=== PATIENT | female | born 1990 | race Caucasian/White ===

== ENCOUNTER 2024-06-28 07:54 | Outpatient (AMB) | payer OTHER, SELFPAY ==
--- OUTSIDE RECORDS SUMMARY | 2024-06-28 07:56 | XMS_ITS | Clinical Summary ---
Author Organization [address] [place] [address] [place] [id number] Phone Care Team Providers Care Printing Sales Representative Name Role Phone Erlin Quezada MD Primary Care Provider [phone] Allergies Active Allergy Reactions Criticality Noted Date Comments Sulfamethoxazole-Trimethoprim 2023 Medications dextroamphetami ne sulfate (DEXEDRINE SPANSULE) 10 mg 24 hr capsule Take 2 capsules (20 mg total) by mouth 1 (one) time each day. Active lamoTRIgine (LaMICtal) 100 mg tablet Take 1 tablet (100 mg total) by mouth at bedtime. 03/28/2024 Active zolpidem (AMBIEN) 10 mg tablet Take 1 tablet (10 mg total) by mouth at bedtime. 03/09/2024 Active Active Problems Problem Noted Date Diagnosed Date Acute gastroenteritis 04/15/2024 Encounters Date Type Department Care Team Description 04/17/2024 Telephone [facility] [address] [id number] Rosalinda Edwards MA 04/15/2024 12:19 PM EST - 04/16/2024 1:15 PM EST Emergency [facility] Emergency [address] [place] [address] Uriel Lorenzo MD Cheng, Ting Ho Danny, DO Flores, Carlos M, MD Santoyo-Pacheco, Omar D, MD Nausea and vomiting, unspecified vomiting type (Primary Dx); Abdominal pain, unspecified abdominal location Discharge Disposition: Home or Self Care 04/15/2024 9:30 AM EST Office Visit [facility]In [facility] [address] [id number] Brenda Sood NP Nausea and vomiting, unspecified vomiting type (Primary Dx); Viral URI from Last 3 Months Surgical History Surgery Date Site/Laterality Comments OTHER SURGICAL HISTORY PROCEDURE: DENIES PREVIOUS SURGERY Medical History Medical History Date Comments Seasonal allergies DX:Seasonal a llergies Pruritus DX:Pruritus Family History Medical History Relation Name Comments Breast cancer Aunt Mothers side Diabetes Father Autoimmune disease Mother Prostate cancer Uncle Fathers side Relation Name Status Comments Aunt Alive Brother Alive Father Alive Maternal Grandfather brain t umor Maternal Grandmother Alive heart d isease Mother Alive Paternal Grandfather Alive Paternal Grandmother Alive Sister Alive Uncle Alive Social History Tobacco Use Types Packs/Day Years Used Date Smoking Tobacco: Never Smokeless Tobacco: Never Alcohol Use Standard Drinks/Week Comments Yes 0 (1 standard drink = 0.6 oz pur e alcohol) Comments Unknown Sex and Gender Information Value Date Recorded Sex Assigned at Not on file Legal Sex Female 9:10 PM EST Gender Identity Not on file Sexual Orientation Not on file Obstetrics History Last Filed Vital Signs Vital Sign Reading Time Taken Comments Blood Pressure 100/65 04/16/2024 10:30 AM EST Pulse 103 04/16/2024 10:28 AM EST Temperature 36.6 ??C (97.9 ??F) 04/16/2024 10:[address] Respiratory Rate 16 04/16/2024 10:28 AM EST Oxygen Saturation 96% 04/16/2024 10:28 AM EST Inhaled Oxygen Concentration - - Weight 97.5 kg (215 lb) 04/15/2024 5:33 PM EST Height 154.9 cm (5' 1 ) 04/15/2024 5:33 PM EST Body Mass Index 40.62 04/15/2024 5:33 PM EST Plan of Treatment Health Maintenance Due Date Last Done Comments Hepatitis B Vaccines (1 of 3 - 19+ 3-dose series) 08/01/2011 Depression Screening 06/16/2019 HIV Screening 06/16/2019 Hepatitis C Screening 06/16/2019 Social Influencers of Health Screening 06/16/2019 COVID-19 Vaccine (3 - Pfizer risk series) 08/09/2020 07/12/2020, 06/21/2020 Influenza Vaccine (#1) 2024 02/25/2023 Cervical Cancer Screening: P ap Smear 12/18/2024 12/18/2021 DTaP,Tdap,and Td Vaccines (2 - Td or Tdap) 07/23/2030 07/23/2020 HIB Vaccines Aged Out No longer eligi ble based on patient's age to complete this topic HPV Vaccines Aged Out No longer eligi ble based on patient's age to complete this topic Hepatitis A Vaccines Aged Out No long er eligible based on patient's age to complete this topic IPV Vaccines Aged Out No longer eligi ble based on patient's age to complete this topic MMR Vaccines Aged Out No longer eligi ble based on patient's age to complete this topic Meningococcal ACWY Vaccine Aged Out N o longer eligible based on patient's age to complete this topic Meningococcal B Vacine Aged Out No lo nger eligible based on patient's age to complete this topic Pneumococcal Vaccine: Pediatrics (0 to 5 Years) and At-Risk Patients (6 to 64 Years) Aged Out No longer eligible b ased on patient's age to complete this topic RSV Immunization Patients Under 20 months Aged Out No longer eligible b ased on patient's age to complete this topic Varicella Vaccines Aged Out No longer eligible based on patient's age to complete this topic Procedures Procedure Name Priority Date/Time Associated Diagnosis Comments ECG 12-LEAD Routine 04/16/2024 9:31 AM EST GASTROINTESTINAL PATHOGENS BY PCR Routine 04/16/2024 6:39 AM EST CBC WITH AUTO DIFFERENTIAL Routine 04/16/2024 5:07 AM EST CBC AND DIFFERENTIAL Routine 04/16/2024 5:07 AM EST MAGNESIUM Routine 04/16/2024 5:06 AM EST BASIC METABOLIC PANEL Routine 04/16/2024 5:06 AM EST HEMOGLOBIN AND HEMATOCRIT STAT 04/15/2024 9:57 PM EST URINALYSIS WITH REFLEX MICROSCOPIC STAT 04/15/2024 4:37 PM EST URINALYSIS WITH REFLEX MICROSCOPIC STAT 04/15/2024 4:37 PM EST XR CHEST 2 VIEWS STAT 04/15/2024 4:[address] ABDOMEN PELVIS W CONTRAST STAT 04/15/2024 3:46 PM EST MANUAL DIFFERENTIAL - SYSMEX WAM STAT 04/15/2024 1:04 PM EST HCG, SERUM, QUALITATIVE STAT 04/15/20 24 1:04 PM EST CBC WITH AUTO DIFFERENTIAL STAT 04/15/2024 1:04 PM EST LIPASE STAT 04/15/2024 1:04 PM EST MAGNESIUM STAT 04/15/2024 1:04 PM EST CBC AND DIFFERENTIAL STAT 04/15/2024 1:04 PM EST COMPREHENSIVE METABOLIC PANEL STAT 04/15/2024 1:04 PM EST POC INFLUENZA A&B MUNA Routine 04/15/2024 10:59 AM EST Nausea and vomiting, unspecified vomiting type POC RAPID [id number], MOLECULAR Routine 04/15/2024 10:58 AM EST Nausea and vomiting, unspecified vomiting type MANUAL DIFFERENTIAL - SYSMEX WAM Routine 04/15/2024 10:12 AM EST Nausea and vomiting, unspecified vomiting type CBC WITH AUTO DIFFERENTIAL Routine 04/15/2024 10:12 AM EST Nausea and vomiting, unspecified vomiting type CBC AND DIFFERENTIAL Routine 04/15/2024 10:12 AM EST Nausea and vomiting, unspecified vomiting type COMPREHENSIVE METABOLIC PANEL Routine 04/15/2024 10:12 AM EST Nausea and vomiting, unspecified vomiting type ECG ANNOTATED 04/15/2024 PAP SMEAR Routine 12/18/2021 from Last 3 Months or Most Recently Relevant to Health Maintenance Results * ECG 12 lead (04/16/2024 9:31 AM EST) Pathologist [facility] Ventricular Rate ECG 102 BPM GEMUSE Atrial Rate 102 BPM GEMUSE P-R Interval 182 ms GEMUSE QRS Duration 68 ms GEMUSE Q-T Interval 334 ms GEMUSE QTc 435 ms GEMUSE P Wave [place] 23 degrees GEMUSE R [place] 26 degrees GEMUSE T [place] 5 degrees GEMUSE ECG Interpretation Sinus tachycardia Otherwise normal ECG No previous ECGs available Confirmed by James MIRZA YUFENG ([id number]) on 04/16/2024 1:56:30 PM GEMUSE 04/16/2024 9:31 AM EST 04/16/2024 1:56 PM EST Jack Gilbert NP ECG ORDERABLES Final Result GEMUSE * (ABNORMAL) Gastrointestinal pathogens molecular study (04/16/2024 6:39 AM EST) [facility] Campylobacter Detection by PCR Not Detected Not Detected LAB MICROBIOLOGY METHOD 4 10:26 AM [facility] Plesiomonas shigelloides Detection by PCR Not Detected Not Detected LAB MICROBIOLOGY METHOD 4 10:26 AM [facility] Salmonella Detection by PCR Not Detected Not Detected LAB MICROBIOLOGY METHOD 4 10:26 AM [facility] Vibrio Detection by PCR Not Detected Not Detected LAB MICROBIOLOGY METHOD 4 10:26 AM [facility] Vibrio cholerae Detection by PCR Not Detected Not Detected LAB MICROBIOLOGY METHOD 4 10:26 AM [facility] Yersinia enterocolitica Detection by PCR Not Detected Not Detected LAB MICROBIOLOGY METHOD 4 10:26 AM [facility] Enteroaggregative E coli EAEC Detection by PCR Not Detected Not Detected LAB MICROBIOLOGY METHOD 4 10:26 AM [facility] Enteropathogenic E coli EPEC Detection Not Detected Not Detected LAB MICROBIOLOGY METHOD 4 10:26 [facility] Enterotoxigenic E coli ETEC LTST Detection Not Detected Not Detected LAB MICROBIOLOGY METHOD 4 10:26 AM [facility] Shiga-like toxin producing E coli STEC STX1 STX2 Det Not Detected Not Detected LAB MICROBIOLOGY METHOD 4 10:26 AM [facility] Shigella Enteroinvasive E coli EIEC Detection Not Detected Not Detected LAB MICROBIOLOGY METHOD 4 10:26 AM [facility] Cryptosporidium Detection by PCR Not Detected Not Detected LAB MICROBIOLOGY METHOD 4 10:26 AM [facility] Cyclospora cayetanensis Detection by PCR Not Detected Not Detected LAB MICROBIOLOGY METHOD 4 10:26 AM [facility] Entamoeba histolytica Detection by PCR Not Detected Not Detected LAB MICROBIOLOGY METHOD 4 10:26 [facility] Giardia lamblia Detection by PCR Not Detected Not Detected LAB MICROBIOLOGY METHOD 4 10:26 AM [facility] Adenovirus F 40 41 Detection by PCR Not Detected Not Detected LAB MICROBIOLOGY METHOD 4 10:26 [facility] Astrovirus Detection by PCR Not Detected Not Detected LAB MICROBIOLOGY METHOD 4 10:26 [facility] Norovirus GI GII Detection by PCR Detected(A ) Not Detected LAB MICROBIOLOGY METHOD 4 10:26 [facility] Comment:Alternate method rec ommended if results do not correlate with the clinical presentation. Sapovirus Detection by PCR Not Detected Not Detected LAB MICROBIOLOGY METHOD 10:26 AM [facility] Rotavirus A Detection by PCR Not Detected Not Detected LAB MICROBIOLOGY METHOD 10:26 AM [facility] Stool Rectum structure / Unknown Non-blood Collection / Unknown 04/16/2024 6:39 AM EST 04/16/2024 6:45 AM EST [facility] - 04/16/2024 10:26 AM EST PCR testing is much more sensitive than traditional techniques and allows for the detection of low numbers of stool pathogens. The clinical correlation of PCR results with the need for treatment and clinical outcomes has not been established. Therefore the results of PCR testing for stool pathogens must be taken into clinical context when making treatment decisions. This is a diagnostic test only, repeat testing for cure is not advised. You may consider infectious disease consult for additional guidance. ??Testing Performed by [facility] Jack Gilbert NP LAB MICROBIOLOGY - GENERAL ORDER [place] Edited Result - Final [facility] [address] [place] [address], [place] [phone] * (ABNORMAL) CBC auto differential (04/16/2024 5:07 AM EST) Only the most recent of3 resultswithin the time period is included. WBC 3.6(L) 4.8 - 10.8 K/mcL LAB HEMETOLOGY METHOD 04/16/2024 5:44 AM [facility] RBC 3.50(L) 3.80 - 4.80 M/mcL LAB HEMETOLOGY METHOD 04/16/2024 5:44 AM [facility] Hemoglobin 10.3(L) 11.5 - 16.0 g/dL LAB HEMETOLOGY METHOD 04/16/2024 5:44 AM [facility] Hematocrit 31.9(L) 35.0 - 47.0 % LAB HEMETOLOGY METHOD 04/16/2024 5:44 AM [facility] MCV 90.4 79.0 - 98.0 FL LAB HEMETOLOGY METHOD 04/16/2024 5:44 AM [facility] MCH 29.2 27.0 - 32.0 pcg LAB HEMETOLOGY METHOD 04/16/2024 5:44 AM [facility] MCHC 32.3 32.0 - 37.0 g/dL LAB HEMETOLOGY METHOD 04/16/2024 5:44 AM [facility] RDW 13.5 11.0 - 15.0 % LAB HEMETOLOGY METHOD 04/16/2024 5:44 AM [facility] Platelets 208 130 - 400 K/mcL LAB HEMETOLOGY METHOD 04/16/2024 5:44 AM [facility] MPV 10.9 7.0 - 11.0 FL LAB HEMETOLOGY METHOD 04/16/2024 5:44 AM [facility] NRBC 0.0 <1.0 % LAB HEMETOLOGY METHOD 04/16/2024 5:44 AM [facility] NRBC Absolute 0.00 <0.10 K/mcL LAB HEMETOLOGY METHOD 04/16/2024 5:44 AM [facility] Neutrophils Relative 64.1 % LAB HEMETOLOGY METHOD 04/16/2024 5:44 AM [facility] Lymphocytes Relative 25.9 % LAB HEMETOLOGY METHOD 04/16/2024 5:44 AM [facility] Monocytes Relative 9.4 % LAB HEMETOLOGY METHOD 04/16/2024 5:44 AM [facility] Eosinophils Relative 0.3 % LAB HEMETOLOGY METHOD 04/16/2024 5:44 AM [facility] Basophils Relative 0.0 % LAB HEMETOLOGY METHOD 04/16/2024 5:44 AM [facility] Immature Granulocytes Relative 0.3 % LAB HEMETOLOGY METHOD 04/16/2024 5:44 AM EST [facility] Neutrophils Absolute 2.33 1.50 - 7.00 K/mcL LAB HEMETOLOGY METHOD 04/16/2024 5:44 AM EST [facility] Lymphocytes Absolute 0.94(L) 1.00 - 5.00 K/mcL LAB HEMETOLOGY METHOD 04/16/2024 5:44 AM EST [facility] Monocytes Absolute 0.34 0.20 - 1.00 K/mcL LAB HEMETOLOGY METHOD 04/16/2024 5:44 AM EST [facility] Eosinophils Absolute 0.01 0.00 - 0.50 K/mcL LAB HEMETOLOGY METHOD 04/16/2024 5:44 AM EST [facility] Basophils Absolute 0.00 0.00 - 0.20 K/mcL LAB HEMETOLOGY METHOD 04/16/2024 5:44 AM EST [facility] Immature Granulocytes Absolute 0.01 0.00 - 0.03 K/mcL LAB HEMETOLOGY METHOD 04/16/2024 5:44 AM EST [facility] Blood Venous blood specimen / Unknown Venipuncture / Unknown 04/16/2024 5:07 AM EST 04/16/2024 5:18 AM EST us Oswaldo Hanson MD LAB BLOOD ORDERABLES Final Re sult [facility] [address] [place] [address], * Magnesium (04/16/2024 5:06 AM EST) Only the most recent of2 resultswithin the time period is included. Magnesium 2.3 1.9 - 2.6 mg/dL LAB CHEMISTRY METHOD 04/16/2024 5:46 AM EST [facility] Blood Venous blood specimen / Unknown Venipuncture / Unknown 04/16/2024 5:06 AM EST 04/16/2024 5:18 AM EST us Oswaldo Hanson MD LAB BLOOD ORDERABLES Final Re sult [facility] [address] [place] [address], * (ABNORMAL) Basic metabolic panel (04/16/2024 5:06 AM EST) Sodium 139 133 - 145 mmol/L LAB CHEMISTRY METHOD 04/16/2024 5:46 AM [facility] Potassium 3.6 3.5 - 5.5 mmol/L LAB CHEMISTRY METHOD 04/16/2024 5:46 AM [facility] Chloride 110 96 - 110 mmol/L LAB CHEMISTRY METHOD 04/16/2024 5:46 AM [facility] CO2 24 21 - 32 mmol/L LAB CHEMISTRY METHOD 04/16/2024 5:46 AM [facility] Anion Gap 5 3 - 11 LAB CHEMISTRY METHOD 04/16/2024 5:46 AM [facility] Glucose 88 70 - 100 mg/dL LAB CHEMISTRY METHOD 04/16/2024 5:46 AM [facility] BUN 7 5 - 25 mg/dL LAB CHEMISTRY METHOD 04/16/2024 5:46 AM [facility] Creatinine 0.54 0.50 - 1.10 mg/dL LAB CHEMISTRY METHOD 04/16/2024 5:46 AM [facility] eGFR 126 >=60 mL/min/1. 73m2 LAB CHEMISTRY METHOD 04/16/2024 5:46 AM [facility] Comment:Calculation based on the??Chronic Kidney Disease Epidemiology Collaboration (CKD-EPI) equation refit??without adjustment for race. BUN/Creatinine Ratio 13.0 LAB CHEMISTRY METHOD 04/16/2024 5:46 AM [facility] Calcium 7.7(L) 8.5 - 10.5 mg/dL LAB CHEMISTRY METHOD 04/16/2024 5:46 AM [facility] Blood Venous blood specimen / Unknown Venipuncture / Unknown 04/16/2024 5:06 AM EST 04/16/2024 5:18 AM EST Oswaldo Hanson MD LAB BLOOD ORDERABLES Final Re sult Performing Organization Address [facility]/ZIP Co de Phone Number [facility] [address] [place] [address], [place] [phone] * Hemoglobin and hematocrit (04/15/2024 9:57 PM EST) Hemoglobin 12.1 11.5 - 16.0 g/dL LAB HEMETOLOGY METHOD 04/15/2024 10:06 PM [facility] Hematocrit 36.5 35.0 - 47.0 % LAB HEMETOLOGY METHOD 04/15/2024 10:06 PM [facility] Blood Venous blood specimen / Unknown Venipuncture / Unknown 04/15/2024 9:57 PM EST 04/15/2024 10:02 PM EST Jack Gilbert NP LAB BLOOD ORDERABLES Final Resul t Performing Organization Address [facility]/ZIP Co de Phone Number [facility] [address] [place] [address], [place] [phone] * (ABNORMAL) Urinalysis with reflex microscopic (04/15/2024 4:37 PM EST) Specific [place] Urine >1.045(H) 1.003 - 1.030 LAB URINALYSIS - AUTOMATED METHOD 04/15/2024 5:05 PM [facility] pH, Urine 6.5 5.0 - 8.0 pH LAB URINALYSIS - AUTOMATED METHOD 04/15/2024 5:05 PM [facility] Leukocytes, Urine Negative Negative LAB URINALYSIS - AUTOMATED METHOD 04/15/2024 5:05 PM [facility] Nitrite, Urine Negative Negative LAB URINALYSIS - AUTOMATED METHOD 04/15/2024 5:05 PM [facility] Protein, Urine Negative <=Trace mg/dL LAB URINALYSIS - AUTOMATED METHOD 04/15/2024 5:05 PM [facility] Glucose, Urine Negative Negative mg/dL LAB URINALYSIS - AUTOMATED METHOD 04/15/2024 5:05 PM [facility] Ketones, Urine 15(A) Negative mg/dL LAB URINALYSIS - AUTOMATED METHOD 04/15/2024 5:05 PM [facility] Urobilinogen , Urine 0.2 0.2 - 1.0 mg/dL LAB URINALYSIS - AUTOMATED METHOD 04/15/2024 5:05 PM [facility] Bilirubin, Urine Negative Negative LAB URINALYSIS - AUTOMATED METHOD 04/15/2024 5:05 PM [facility] Blood, Urine Negative Negative LAB URINALYSIS - AUTOMATED METHOD 04/15/2024 5:05 PM [facility] Urine Urine specimen obtained by clean catch procedure / Unknown Non-blood Collection / Unknown 04/15/2024 4:37 PM EST 04/15/2024 4:50 PM EST us Baldemar FLEMING LAB URINE ORDERABLES April kong Result [facility] [address] [place] [address], * XR Chest 2 Views (04/15/2024 4:02 PM EST) Anatomical Region Laterality Modality Body Radiographic Ebonie ging 04/15/2024 4:10 PM EST Impressions 04/15/2024 4:10 PM EST The lungs are clear bilaterally. ??The mediastinum appears within normal limits. -------- FINAL REPORT -------- Dictated By: Baldemar Cerrato Dictated Date: 04/15/2024 16:10 ET Assigned Physician: Baldemar Cerrato Reviewed and Electronically Signed By: Baldemar Cerrato Signed Date: 04/15/2024 16:10 ET Workstation ID: [id number] Transcribed By: Self Edit Transcribed Date: 04/15/2024 16:10 ET Narrative 04/15/2024 4:10 PM EST Frontal and lateral view of the chest COMPARISON: CT chest November 2019 INDICATION: Fatigue. ??Body aches. ??Weakness. Procedure Note Baldemar Cerrato MD - 04/15/2024 Frontal and lateral view of the chest COMPARISON: CT chest November 2019 INDICATION: Fatigue. Body aches. Weakness. IMPRESSION: The lungs are clear bilaterally. The mediastinum appears within normallimits. -------- FINAL REPORT -------- Dictated By: Baldemar Cerrato Dictated Date: 04/15/2024 16:10 ET Assigned Physician: Baldemar Cerrato Reviewed and Electronically Signed By: Baldemar Cerrato Signed Date: 04/15/2024 16:10 ET Workstation ID: [id number] Transcribed By: Self Edit Transcribed Date: 04/15/2024 16:10 ET Sam FLEMING IMG XR PROCEDURES Final Resul t * CT Abdomen Pelvis w Contrast (04/15/2024 3:46 PM EST) Anatomical Region Laterality Modality Body Computed Tomogra phy 04/15/2024 3:58 PM EST Impressions 04/15/2024 4:02 PM EST Fluid is noted within small bowel loops and within much of the colon that may be seen with enteritis/diarrheal illness. -------- FINAL REPORT -------- Dictated By: Baldemar Cerrato Dictated Date: 04/15/2024 15:58 ET Assigned Physician: Baldemar Cerrato Reviewed and Electronically Signed By: Baldemar Cerrato Signed Date: 04/15/2024 16:02 ET Workstation ID: [id number] Transcribed By: Self Edit Transcribed Date: 04/15/2024 15:58 ET Narrative 04/15/2024 4:[address] abdomen and pelvis with IV contrast TECHNIQUE: Axial and reformatted images were performed of the abdomen and pelvis following administration of IV contrast.90cc of ISOVUE was administered IV for contrast enhanced images DOSE: CTDIvol: 31.5mGy. ??Total exam DLP: 1748.7mGy-cm COMPARISON: None INDICATION: Nausea and vomiting and diarrhea. FINDINGS: Liver: The liver appears normal Biliary: Gallbladder appears normal. No biliary dilatation. Pancreas: Pancreas appears within normal limits. ??No atrophy or ductal dilatation. Spleen: Spleen appears normal. ?? Adrenals: The adrenal glands appear symmetric and normal bilaterally. Kidneys: The kidneys appear normal. ??No evidence of hydronephrosis. Retroperitoneum: No abnormal lymphadenopathy. ?? Vessels: Aorta appears normal Bowel: Fluid is noted throughout much the colon. ??Mildly distended fluid-filled bowel loops are noted. ??No regions of irregular bowel wall thickening or mucosal enhancement. Mesentery: Mesentery appears normal. ??No ascites. Pelvis: Pelvis appears within normal limits. ??No abnormal lymphadenopathy. Abdominal wall/bones: No significant hernia. ??Bones appear within normal limits. ?? Lung Bases: Minimal basilar atelectasis. Procedure Note Baldemar Cerrato MD - 04/15/2024 CT abdomen and pelvis with IV contrast TECHNIQUE: Axial and reformatted images were performed of the abdomen andpelvis following administration of IV contrast.90cc of ISOVUE wasadministered IV for contrast enhanced images DOSE: CTDIvol: 31.5mGy. Total exam DLP: 1748.7mGy-cm COMPARISON: None INDICATION: Nausea and vomiting and diarrhea. FINDINGS: Liver: The liver appears normal Biliary: Gallbladder appears normal. No biliary dilatation. Pancreas: Pancreas appears within normal limits. No atrophy or ductaldilatation. Spleen: Spleen appears normal. Adrenals: The adrenal glands appear symmetric and normal bilaterally. Kidneys: The kidneys appear normal. No evidence of hydronephrosis. Retroperitoneum: No abnormal lymphadenopathy. Vessels: Aorta appears normal Bowel: Fluid is noted throughout much the colon. Mildly distendedfluid-filled bowel loops are noted. No regions of irregular bowel wallthickening or mucosal enhancement. Mesentery: Mesentery appears normal. No ascites. Pelvis: Pelvis appears within normal limits. No abnormallymphadenopathy. Abdominal wall/bones: No significant hernia. Bones appear within normallimits. Lung Bases: Minimal basilar atelectasis. IMPRESSION: Fluid is noted within small bowel loops and within much of the colon thatmay be seen with enteritis/diarrheal illness. -------- FINAL REPORT -------- Dictated By: Baldemar Cerrato Dictated Date: 04/15/2024 15:58 ET Assigned Physician: Baldemar Cerrato Reviewed and Electronically Signed By: Baldemar Cerrato Signed Date: 04/15/2024 16:02 ET Workstation ID: [id number] Transcribed By: Self Edit Transcribed Date: 04/15/2024 15:58 ET Sam FLEMING IM CT PROCEDURES Final Resul t * (ABNORMAL) Manual differential (04/15/2024 1:04 PM EST) Only the most recent of2 resultswithin the time period is included. Neutrophils % 87.0 % LAB HEMETOLOGY METHOD 04/15/2024 2:25 PM EST [facility] Bands % 7.0 % LAB HEMETOLOGY METHOD 04/15/2024 2:25 PM EST [facility] Lymphocytes % 3.0 % LAB HEMETOLOGY METHOD 04/15/2024 2:25 PM [facility] Monocytes % 4.0 % LAB HEMETOLOGY METHOD 04/15/2024 2:25 PM [facility] Eosinophils % 0.0 % LAB HEMETOLOGY METHOD 04/15/2024 2:25 PM EST [facility] Basophils % 0.0 % LAB HEMETOLOGY METHOD 04/15/2024 2:25 PM [facility] Neutrophils Absolute Manual 3.83 1.50 - 7.00 K/mcL LAB HEMETOLOGY METHOD 04/15/2024 2:25 PM [facility] Bands Absolute Manual 0.31(H) 0.00 - 0.00 K/mcL LAB HEMETOLOGY METHOD 04/15/2024 2:25 PM EST [facility] Lymphocytes Absolute 0.13(L) 1.00 - 5.00 K/mcL LAB HEMETOLOGY METHOD 04/15/2024 2:25 PM EST [facility] Monocytes Absolute Manual 0.18(L) 0.20 - 1.00 K/mcL LAB HEMETOLOGY METHOD 04/15/2024 2:25 PM [facility] Eosinophils Absolute Manual 0.00 0.00 - 0.50 K/mcL LAB HEMETOLOGY METHOD 04/15/2024 2:25 PM [facility] Basophils Absolute Manual 0.00 0.00 - 0.20 K/mcL LAB HEMETOLOGY METHOD 04/15/2024 2:25 PM EST [facility] Rbc Morphology See comment( A) Consistent with indices, Normal for [place] LAB HEMETOLOGY METHOD 04/15/2024 2:25 PM EST [facility] Comment:RBC: Morphology agre es with CBC Platelet Morphology - WAM See Note(A) Normal LAB HEMETOLOGY METHOD 04/15/2024 2:25 PM [facility] Comment:PLT: Normal Blood Venous blood specimen / Unknown Venipuncture / Unknown 04/15/2024 1:04 PM EST 04/15/2024 1:48 PM EST us Baldemar FLEMING LAB BLOOD ORDERABLES April dilan Result [facility] [address] [place] [address], [place] [phone] * hCG, serum, qualitative (04/15/2024 1:04 PM EST) [facility] hCG Qual Negative Negative 04/15/2024 2:24 PM EST [facility] Blood Venous blood specimen / Unknown Venipuncture / Unknown 04/15/2024 1:04 PM EST 04/15/2024 1:48 PM EST Uriel Lorenzo MD LAB BLOOD ORDERABLES Final Resu lt Performing Organization Address [facility]/ZIP Co de Phone Number [facility] [address] [place] [address], [place] [phone] * (ABNORMAL) Lipase (04/15/2024 1:04 PM EST) [facility] Lipase 11(L) 13 - 75 unit/L LAB CHEMISTRY METHOD 04/15/2024 2:22 PM EST [facility] Blood Venous blood specimen / Unknown Venipuncture / Unknown 04/15/2024 1:04 PM EST 04/15/2024 1:48 PM EST Baldemar FLEMING LAB BLOOD ORDERABLES April l Result Performing Organization Address [facility]/ZIP Co de Phone Number [facility] [address] [place] [address], [place] [phone] * (ABNORMAL) Comprehensive Metabolic Panel (CMP) (04/15/2024 1:04 PM EST) Only the most recent of2 resultswithin the time period is included. [facility] Sodium 140 133 - 145 mmol/L LAB CHEMISTRY METHOD 04/15/2024 2:22 PM EST [facility] Potassium 3.3(L) 3.5 - 5.5 mmol/L LAB CHEMISTRY METHOD 04/15/2024 2:22 PM [facility] Chloride 111(H) 96 - 110 mmol/L LAB CHEMISTRY METHOD 04/15/2024 2:22 PM [facility] CO2 21 21 - 32 mmol/L LAB CHEMISTRY METHOD 04/15/2024 2:22 PM [facility] Anion Gap 8 3 - 11 LAB CHEMISTRY METHOD 04/15/2024 2:22 PM [facility] Glucose 107(H) 70 - 100 mg/dL LAB CHEMISTRY METHOD 04/15/2024 2:22 PM [facility] BUN 15 5 - 25 mg/dL LAB CHEMISTRY METHOD 04/15/2024 2:22 PM [facility] Creatinine 0.69 0.50 - 1.10 mg/dL LAB CHEMISTRY METHOD 04/15/2024 2:22 PM [facility] eGFR 119 >=60 mL/min/1. 73m2 LAB CHEMISTRY METHOD 04/15/2024 2:22 PM [facility] Comment:Calculation based on the??Chronic Kidney Disease Epidemiology Collaboration (CKD-EPI) equation refit??without adjustment for race. BUN/Creatinine Ratio 21.7 LAB CHEMISTRY METHOD 04/15/2024 2:22 PM [facility] Calcium 7.5(L) 8.5 - 10.5 mg/dL LAB CHEMISTRY METHOD 04/15/2024 2:22 PM [facility] AST (SGOT) 16 10 - 42 unit/L LAB CHEMISTRY METHOD 04/15/2024 2:22 PM [facility] ALT (SGPT) 28 10 - 60 unit/L LAB CHEMISTRY METHOD 04/15/2024 2:22 PM [facility] Alkaline Phosphatase 57 42 - 121 unit/L LAB CHEMISTRY METHOD 04/15/2024 2:22 PM [facility] Total Protein 5.4(L) 6.0 - 8.0 g/dL LAB CHEMISTRY METHOD 04/15/2024 2:22 PM EST [facility] Albumin 3.0(L) 3.2 - 5.0 g/dL LAB CHEMISTRY METHOD 04/15/2024 2:22 PM EST [facility] Total Bilirubin 0.4 0.0 - 1.4 mg/dL LAB CHEMISTRY METHOD 04/15/2024 2:22 PM EST [facility] Blood Venous blood specimen / Unknown Venipuncture / Unknown 04/15/2024 1:04 PM EST 04/15/2024 1:48 PM EST Baldemar FLEMING LAB BLOOD ORDERABLES April l Result [facility] [address] [place] [address], * POC Influenza A&B MUNA (04/15/2024 10:59 AM EST) POC Alysha Flu A Antigen Negative Negative POC Alysha Flu B Antigen Negative Negative Swab Nasopharyngeal structure / Unknown 04/15/2024 10:59 AM EST Brenda Sood INFORMATION TECHNOLOGY DATA ANALYST POINT OF CARE TEST ENTER/EDIT ORDERABLES Final Result * Poc Rapid [id number], MOLECULAR (04/15/2024 10:58 AM EST) COVID-19/SARS- COV-2 Rapid POC Negative Negative Swab Nasopharyngeal structure / Unknown 04/15/2024 10:58 AM EST us Brenda Sood INFORMATION TECHNOLOGY DATA ANALYST POINT OF CARE TEST ENTER/EDIT ORDERABLES Final Result * ECG-Annotated (04/15/2024) us Provider Onbase MD ECG ORDERABLES Final Result * Pap smear (12/18/2021) 12/18/2021 Narrative HISTORICAL TESTING LAB RESULTING AGENCY - 12/25/2021 4:31 PM EDT [id number] THINPREP PAP, IMAGED: NEGATIVE FOR SQUAMOUS INTRAEPITHELIAL LESION AND MALIGNANCY . NIKOLAY GUTIERRES(ASCP) (CASE ELECTRONICALLY SIGNED 12 25 2021) ADEQUACY: SATISFACTORY ENDOCERVICAL/TRANSFORMATION ZONE COMPONENT ABSENT. SOURCE: THINPREP PAP HPV IF ASCUS: REFLEX 16 AND 18, CERVICAL, IMAGED CLINICAL INFORMATION: HPV IF DIAGNOSIS OF ASCUS. AMENORRHEA, Z12.4 Anali Oden [facility] CYTOLOGY ORDERABLES Final Result HISTORICAL TESTING LAB RESULTING AGENCY from Last 3 Months or Most Recently Relevant to Health Maintenance Additional Health Concerns Infection Onset Date Last Indicated Norovirus 04/16/2024 04/16/2024 Insurance [employer] DOME[employer]IC Advance Directives * Full Code - Default (Latest Code Status on File) Date Activated Date Inactivated Comments 04/15/2024 6:12 PM 04/16/2024 3:21 PM This is orde r is used when code status has not been discussed with the patient, or code status is otherwise unknown/unconfirmed To update the patient's code status, place a code status order. Do not modify or discontinue any currently active code status orders. Care Teams Printing Sales Representative Relationship Specialty Start Date End Date Erlin Quezada MD [address] [place] [address] [address] [place], [place] PCP - General Internal Medicine 10/13/16
--- OUTSIDE RECORDS SUMMARY | 2024-06-28 07:56 | XMS_ITS | Data Portability ---
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 Plan of Treatment Reminders Order Date Submit Date Provider Last Modified By Organization Details Last Modified Time Details Appointments None recorded. Lab rapid SARS CoV 2 Ag, QL IA, respiratory specimen 2022 023 [place] [address] [facility] [address], [address] [place], [address], 3 20:10:43 urinalysis, dipstick 2022 023 [email or web address] [facility] [address], [address] [place], [address], 3 21:27:27 test, urine 20[email or web address] [place] [address] [address], [address] [place], [address], 3 21:27:27 culture, urine 2022 023 GEORGE [facility], [address] [place] [address], [place], [address], 3 22:06:01 Referral None recorded. Procedures None recorded. Surgeries None recorded. Imaging None recorded. Medication Orders amoxicillin 875 mg tablet 2023 024 [id number], [address] [facility], [place], [address], 4 18:36:56 cefuroxime axetil 500 mg tablet 2022 023 [email or web address] 2 [facility], [phone] [place], [address], 4 17:55:34 benzonatate 100 mg capsule 2022 023 [email or web address] 2 [facility], [phone] [place], [address], 4 17:55:19 loratadine 10 mg tablet 2022 023 [email or web address] [facility], [phone] [place], [address], 3 20:10:43 ondansetron HCl 4 mg tablet 2022 023 [email or web address] 2 [facility]30, [phone] [place], [address], 4 17:57:03 Patient TargetsNo targets recorded. Patient Instructions Encounter Date Encounter Id Patient Instructions Last Modified By Organization Details Last Modified Time 08/03/2022 [id number] gastroenteritis: care instructions [email or web address] Not available 08/03/2022 21:27:27 Please don't hesitate to call. ER like we discussed if you developed worsening abdominal symptoms, fever, or increased chest discomfort. Heating pad to your back and chest will help. Based on you exam and presentation I am diagnosing you with a viral gastroenteritis. This should resolve on its own without any intervention in 1-5 days. This may be contagious to try and avoid family members while you are sick. Use a seperate bathroom if possible. These are my recommendations to help with your symptoms and help you recover: 1. Drink plenty of fluid and stay hydrated. 2. Wash hands and home surfaces regularly. 3. Do not share food or drinks 4. Try to eat foods like toast, chicken broth, bananas. 5. Stay away from Gatorade, but you can drink pedialyte, soda, or water. 6. Avoid Dairy I would be seen again if you develop: 1. Severe abdominal pain 2. Vomiting more than 48 hours 3. Fever > 101.0 4. Blood in Stool 5. Blood in Urine. Thank you for using [facility] [employer], please feel free to contact us if you have any questions or concerns. [email or web address] Not available 08/03/2022 20:11:51 10/23/2023 [id number] lymphadenitis: c are instructions [email or web address] Not available 10/23/2023 18:38:17 You can take ove r the counter tylenol or ibuprofen per package instructions for the pain. See printed instructions. Follow-up with your doctor if no improvement in 3 days. Seek Emergency Medical evaluation for any worsening symptoms. [email or web address] Not available 10/23/2023 18:37:32 Reason for Referral None Reported. Results Created Date Observation Date Name Description Value Unit Range Abnormal Flag Note LastModifiedBy Organization Detail LastModifiedTime 08/04/1908/08/2022 URINE CULTU RE, SALOI NE urine culture, routine FINAL REPORT abnormal Not Available [facility] ([facility]) [address] [facility], [place], [address], 08/08/2022 14:06:33 08/04/19 23 08/08/2022 URINE CULTU RE, ROUTI NE result 1 ENTERO COCCUS FAECAL IS abnormal For Enter ococc us speci es, amino glyco sides (exce pt for high- level resis tance scree jerrell) , cepha lospo rins, clind amyci n, and trime thopr im-mccloud lfame thoxa zole are not effec tive clini missy . (CLSI , M100- S26, 2016) 25,00 0-50, 000 colon y formi ng units per mL Not Available [facility] ([facility]) [address] [place], [address], 08/08/2022 14:06:33 08/04/19 23 08/08/2022 URINE CULTU RE, ROUTI NE antimicrobia l susceptibili ty COMMEN T S = Susce ptibl e; I = Inter media te; R = Resis tant P = Posit dax; N = Negat dax MICS are expre ssed in micro grams per mL Antib iotic RSLT# 1 RSLT# 2 RSLT# 3 RSLT# 4 Cipro floxa cody S Levof loxac in S Nitro furan toin S Penic illin S Tetra cycli ne R Vanco mycin S Not Available [facility] ([facility]) [address] [facility], [place], [address], 08/08/2022 14:06:33 08/04/1908/03/2022 urina lysis , dipst ick Unknown Analyte Normal = light yellow Not Available [address] [place], [address], 08/03/2022 20:02:01 08/04/19 23 08/03/2022 urina lysis , dipst ick Unknown Analyte Red Not Available [address] [place] [address] [address] [place], [address], 08/03/2022 20:02:01 08/04/19 23 08/03/2022 urina lysis , dipst ick Unknown Analyte Normal = clear Not Available [address] [place], [address], 08/03/2022 20:02:01 08/04/19 23 08/03/2022 urina lysis , dipst ick Unknown Analyte Slight ly Cloudy Not Available [address] [place], [address], 08/03/2022 20:02:01 08/04/19 23 08/03/2022 urina lysis , dipst ick Unknown Analyte Normal = negati ve Not Available [address] [place], [address], 08/03/2022 20:02:01 08/04/1908/03/2022 urina lysis , dipst ick Unknown Analyte Negati ve Not Available [facility] [address] [place], [address], 08/03/2022 20:02:01 08/04/19 23 08/03/2022 urina lysis , dipst ick Unknown Analyte Normal = Negati ve Not Available [facility] [address] [place], [address], 08/03/2022 20:02:01 08/04/1908/03/2022 urina lysis , dipst ick Unknown Analyte Large Not Available [facility] [address] [place], [address], 08/03/2022 20:02:01 08/04/19 23 08/03/2022 urina lysis , dipst ick Unknown Analyte Normal = Negati ve Not Available [facility] [address] [place], [address], 08/03/2022 20:02:01 08/04/1908/03/2022 urina lysis , dipst ick Unknown Analyte Trace Not Available [facility] [address] [place], [address], 08/03/2022 20:02:01 08/04/19 23 08/03/2022 urina lysis , dipst ick Unknown Analyte Normal = 1.010, 1.015, 1.020 Not Available [facility] [address] [place], [address], 08/03/2022 20:02:01 08/04/19 23 08/03/2022 urina lysis , dipst ick Unknown Analyte 1.020 Not Available [facility] [address] [place], [address], 08/03/2022 20:02:01 08/04/19 23 08/03/2022 urina lysis , dipst ick Unknown Analyte Normal = Negati ve Not Available [facility] [address] [address] [place], [address], 08/03/2022 20:02:01 08/04/19 23 08/03/2022 urina lysis , dipst ick Unknown Analyte Large Not Available [facility] [address] [place], [address], 08/03/2022 20:02:01 08/04/19 23 08/03/2022 urina lysis , dipst ick Unknown Analyte Normal = 6.5, 7.0, 7.5, 8.0 Not Available [facility] [place], [address], 08/03/2022 20:02:01 08/04/1908/03/2022 urina lysis , dipst ick Unknown Analyte 6.0 Not Available [facility] [address] [place], [address], 08/03/2022 20:02:01 08/04/19 23 08/03/2022 urina lysis , dipst ick Unknown Analyte Normal = Negati ve Not Available [facility] [address] [address] [place], [address], 08/03/2022 20:02:01 08/04/19 23 08/03/2022 urina lysis , dipst ick Unknown Analyte 300 mg/dL Not Available [facility] [address] [place], [address], 08/03/2022 20:02:01 08/04/19 23 08/03/2022 urina lysis , dipst ick Unknown Analyte Normal = 0.2, 1.0 Not Available [address] [address] [place], [address], 08/03/2022 20:02:01 08/04/19 23 08/03/2022 urina lysis , dipst ick Unknown Analyte 2.0 E.U./d L Not Available [facility] [address] [place], [address], 08/03/2022 20:02:01 08/04/19 23 08/03/2022 urina lysis , dipst ick Unknown Analyte Normal = Negati ve Not Available [facility] [address] [place], [address], 08/03/2022 20:02:01 08/04/19 23 08/03/2022 urina lysis , dipst ick Unknown Analyte Positi ve Not Available [facility] [address] [place], [address], 08/03/2022 20:02:01 08/04/19 23 08/03/2022 urina lysis , dipst ick Unknown Analyte Normal = Negati ve Not Available [facility] [address] [place], [address], 08/03/2022 20:02:01 08/04/19 23 08/03/2022 urina lysis , dipst ick Unknown Analyte Large Not Available [address] [facility] [address] [place], [address], 08/03/2022 20:02:01 08/04/19 23 08/03/2022 pregn percy test, urine Unknown Analyte Normal = Negati ve Not Available [address] [place], [address], 08/03/2022 20:03:36 08/04/19 23 08/03/2022 pregn percy test, urine Unknown Analyte negati ve Not Available [address] [place], [address], 08/03/2022 20:03:36 08/04/19 23 08/03/2022 rapid SARS CoV 2 Ag, QL IA, respi rator y speci men Unknown Analyte Normal =Negat dax Not Available [address] [place], [address], 08/03/2022 19:25:57 08/04/19 23 08/03/2022 rapid SARS CoV 2 Ag, QL IA, respi rator y speci men Unknown Analyte negati ve Not Available [address] [place], [address], 08/03/2022 19:25:57 Result Notes None recorded. Problems Name Problem SNOMED Code Status Onset Date Resolution Date Notes Provider Name and Address Organization Details Recorded Time Anxiety 80383414 Active 2023 Amy Bricault null, [place] - [facility] 4 17:58:32 Lupus erythematosus 159203362 Active 2022 AMY DRINKWINE null, [place] - [facility] 3 19:23:14 Problem Notes None recorded. Medical Equipment None Reported. Allergies Allergen ID Allergen Name Allergen Category Reaction Reaction Severity Criticality Documentation Date Start Date Code Code System Note Provider Name and Address Organization Details Recorded Time 255130 Bactrim medicatio n hives Not available Not available 08/03/2022 31860 9 RxNorm AMY DRINKWINE null, [place] - [facility] 3 19:20:11 598468 Ritalin medicatio n rash Not available Not available 08/03/2022 30674 7 RxNorm AMY DRINKWINE null, [place] - [facility] 19:20:04 Medications Name Sig Start Date Stop Date Status Note LastModified by Organization Details LastModified Time Prenatabs Rx 29 mg iron-1 mg tablet TAKE 1 TABLET BY MOUTH EVERY DAY 10/22 completed Not Available Not Available Not Available ondansetron HCl 4 mg tablet Take 1 tablet every 4-6 hours by oral route. 10/22 completed Not Available Not Available Not Available medroxyprog esterone 5 mg tablet TAKE 2 TABLETS BY MOUTH DAILY FOR 7 DAYS. 08/03 completed Not Available Not Available Not Available Pyridium 100 mg tablet Take 1 tablet 3 times a day by oral route for 3 days. 10/22 completed Not Available Not Available Not Available sumatriptan 50 mg tablet TAKE 1 TABLET BY MOUTH DIRECTED NEEDED FOR SEVERE HEADACHE -MAY REPEAT IN 2 HOURS IF RECURRS 10/22 completed Not Available Not Available Not Available fexofenadin e 180 mg tablet TAKE 1 TABLET BY MOUTH TWICE A DAY 10/22 completed Not Available Not Available Not Available Macrobid 100 mg capsule Take 1 capsule every 12 hours by oral route for 5 days. 10/22 completed Not Available Not Available Not Available dextroamphe tamine sulfate ER 10 mg capsule,ext ended release TAKE 2 CAPSULES BY MOUTH EVERY DAY active Not Available Not Available No t Available amoxicillin 875 mg tablet Take 1 tablet every 12 hours by oral route with meal(s) for 7 days, for lymph node infection . 2023 active Not Available Not Available Not Avai lable benzonatate 100 mg capsule Take 1 capsule 3 times a day by oral route. 10/22 completed Not Available Not Available Not Available Lamictal 25 mg tablet Take 1 tablet twice a day by oral route. active Not Available Not Available No t Available calcipotrie ne 0.005 % topical cream Apply SMALL AMOUNT TO affected AREAS TWICE A DAY 08/03 completed Not Available Not Available Not Available dextroamphe tamine-amph etamine ER 10 mg 24hr capsule,ext end release TAKE 1 CAPSULE BY MOUTH ONCE DAILY 08/03 completed Not Available Not Available Not Available gabapentin 100 mg capsule Take 1 capsule 3 times a day by oral route. active Not Available Not Available No t Available hydroxychlo roquine 200 mg tablet TAKE 2 TABLETS BY MOUTH EVERY DAY active Not Available Not Available No t Available cefuroxime axetil 500 mg tablet Take 1 tablet twice a day by oral route for 10 days. 10/22 completed Not Available Not Available Not Available Ambien 10 mg tablet Take 1 tablet every day by oral route. active Not Available Not Available No t Available loratadine 10 mg tablet Take 1 tablet every day by oral route. 2022 active Not Available Not Available Not Avai lable Vitals Date Recorded Body height Body mass index (BMI) Body weight Oxygen saturation Oxygen saturation in Arterial blood by Pulse oximetry Pain severity - 0-10 verbal numeric rating [Score] - Reported Heart rate Respiratory rate Body temperature Systolic blood pressure Diastolic blood pressure Provider Name and Address Organization Details Last Updated DateTime 3 154.94 cm 37 kg/m2 77455.1 g 99 % 99 % 6 110 /min 16 /min 97.9 [degF] 128 mm[Hg] 80 mm[Hg] AMY ONEIL [facility] 19:25:15 Date Recorded Body height Body mass index (BMI) Body weight Pain severity - 0-10 verbal numeric rating [Score] - Reported Body temperature Heart rate Oxygen saturation Oxygen saturation in Arterial blood by Pulse oximetry Systolic blood pressure Diastolic blood pressure Provider Name and Address Organization Details Last Updated DateTime 4 154.94 cm 38.7 kg/m2 14075.4 4 g 6 97.1 [degF] 79 /min 100 % 100 % 107 mm[Hg] 70 mm[Hg] Amy Shields [facility] 4 18:01:50 Social History Question Answer Notes LastModified by Organizat ion Details LastModified Time Tobacco Smoking Status Current Some Day Smoker last smoked a week ago AMY lujan [facility] 08/03/2022 19:24:40 Have You Had A Flu Shot This Season? Yes Information not available 10/23/2023 If No, Would You Like A Flu Shot Today? No Information not available 10/23/2023 Do You Use Any Illicit Or Recreational Drugs? No Information not available 08/03/2022 Do You Or Have You Ever Used Any Other Forms Of Tobacco Or Nicotine? No Information not available 08/03/2022 Sex: Unknown Functional Status None recorded. Mental Status None recorded. Family History Relationship Description Onset Age of this Age Resolved Age Notes LastModified by Organization Details LastModified Time Mother Heart disease [email or web address] Not available 08/03 19:23:25 Maternal Grandmother Malignant neoplastic disease [email or web address] Not available 08/03 19:23:58 Maternal Grandfather Malignant neoplastic disease [email or web address] Not available 08/03 19:23:58 Medical History No medical history recorded. Gynecological History Statement/Question Response Date of LMP 09/23/2023 Is there any chance of ? Unsure Obstetrics History GPAL:G 0 P 0 0 0 0 Past Encounters Encounter ID Performer Location Encounter Start Date Encounter Closed Date Diagnosis/Indication Diagnosis SNOMED-CT Code Diagnosis ICD10 Code Diagnosis Note [id number] [facility] [address] [place] [address] 11/18/2019 18:49:43 11/18/2019 19:29:36 [id number] [facility] [address] [place] [id number] 06/28/2016 12:56:13 06/28/2016 14:09:57 [id number] [facility] [address] [place] [address] 05/17/2015 17:36:07 05/17/2015 18:42:29 [id number] [facility] [address] [place] [address] 05/22/2017 18:28:58 05/22/2017 18:58:42 [id number] [facility] [address] [place] [id number] 2018 08:12:09 2018 09:35:08 [id number] [facility] [address] [address] 08/30/2017 13:11:27 08/30/2017 13:45:12 [id number] [facility] [address] [address] 02/14/2018 10:32:46 02/14/2018 10:52:42 [id number] [address] [address] 11/09/2019 15:25:06 11/09/2019 16:49:13 [id number] [address] [address] 10/18/2020 17:51:32 10/18/2020 18:36:02 [id number] [address] [address] 02/15/2020 12:06:03 02/15/2020 14:32:36 [id number] [address] [address] 05/07/2015 11:49:06 05/07/2015 12:33:13 [id number] [address] [address] 05/05/2017 09:19:59 05/05/2017 10:50:43 [id number] [address] [address] 02/21/2015 17:56:00 02/21/2015 18:30:15 [id number] [facility]DETTE NAIR [address] [place] [address] 08/03/2022 18:55:47 08/03/2022 20:23:29 Exposure to SARS-CoV-2 090121590 Z20.822 Gastroenteritis 97830573 K52.9 If vomiting continues for another 24 hours I would suggest going to the Emergency Room. You should go to the Emergency more urgently if you develop:1. Fever2. Abdominal pain Cough 25927666 R05.9 Upper resp iratory infection 28260547 J06.9 Pyuria 9526474 R82.81 Your urine is very suggestive of a UTI. You have Leukocytes , and Nitrates. I will send it to culture to check. [id number] JOELLEN ROCA [place] [address] [address] 10/23/2023 16:44:56 10/23/2023 18:43:27 Cervical lymphadenitis 6911973 I88.9 HeatApply moist heat to affected area 3 times a day for 20 minutes at a time. Do not sleep with a heating pad as it may cause skin galvan. Health Concerns Section Related Observation LastModified by Organization Detai ls LastModified Time None Recorded Concern Status LastModified by Organization Details LastModified Time None Recorded Advance Directives Directive None Recorded Payers Encounter Date Sequence Insurance Name Policy Number Policy Rubin Covered Member ID Rubin Member ID Guarantor Name 11/18/2019 1 [employer] [id number] Sarah Juarez [id number] Sarah Juarez 02/15/2020 1 [employer] [id number] Sarah Juarez [id number] Sarah Juarez 10/18/2020 1 [employer] [id number] Sarah Juarez [id number] 2 Sarah Juarez 08/03/2022 1 [employer] [id number] Sarah Juarez [id number] 2 Sarah Juarez 10/23/2023 1 [employer] [id number] Sarah Juarez [id number] 2 Sarah Juarez Notes Date Note Type Note Provider Name and Address Organization Details Recorded Time 3 text/html Nausea / Vomiting UCReported bypatient.source of patient informationInformation obtained from patient Severity:mild Duration:3 days Onset/Timing:acute Associated Symptoms:no abdominal pain; no chills; no heartburn; no dark tarry stools; no fatigue;fever;diarrheaNotes :The patient reports that for the last 3 days has had vomiting. No abdominal pain. She has had a cold for over 1 week. The patient states mucous and coughing. Thought she heard wheezing today. The patient still has her gallbladder and appendix. Denies fever. Unable to keep anything down. BERNADETTE NAIR [address] [place], [address], [place] - [facility] 08/06/2022 21:21:51 4 text/html 33 yo female c/o increased pain on the right side of her neck radiating to her right ear for the last 3 days. Hx of recurrent ear infections. Tender under the right neck. Afebrile. JOELLEN ROCA MD [address] [facility], [place], [address], [place] - [facility] 10/24/2023 18:44:18 OBGyn Episode No OBEpisode recorded.
--- NOTE | 2024-06-28 08:11 | A.OFFVIS_ITS ---
Vital Signs 06/28/24 08:13 Height 5 ft 1 in Weight 200 lb BMI 37.8 BP 82/50 L Blood Pressure Location Lt brachial Position Sitting Pulse 79 Pulse Source Pulse Oximeter Pulse Oximetry (%) 98 Oxygen Delivery Method Room Air Intake Visit Reasons: Lupus Intake Note: follow for lupus Oral And Maxillofacial Surgery Resident Required: No Accompanied by: Self / Same As Patient Allergies Sulfa (Sulfonamide Antibiotics) Allergy (Unknown, Verified 06/28/24 08:11) anaphylaxis HPI HPI Lupus: Details: she had lesions as bumps on left upper eye lid resolved with topical steroid. Out of HCQ for 3 months. Denies fevers, dyspnea, pleurisy, photosensitivity, Raynaud's phenomenon, urinary symptoms, oral ulcers and genital ulcers. She always has been urinating every 30 minutes to an hour. She has seen a provider about this. She has been experiencing night sweats when she sleeps affecting her lower extremities. Sometimes it occurs during the day. She continues to have her usual periods monthly. Works at [employer]. No recent infections. Review of Systems Const All systems reviewed & are unremarkable except as noted in HPI and below Physical Exam Vital Signs: Last Vital Signs Pulse 79 06/28/24 08:13 BP 82/50 L 06/28/24 08:13 Pulse Ox 98 06/28/24 08:13 Oxygen Delivery Method Room Air 06/28/24 08:13 BMI result Body Mass Index 37.8 Const Other: General: Comfortable CVS: RRR Respiratory: clear to auscultation bilaterally. Good respiratory effort Skin: No lesions seen MSK: No tenderness of any joints. No synovitis. Good range of motion upper extremities and lower extremities. Assessment & Plan Assessment & Plan (1) Systemic lupus erythematosus: Comment: Cutaneous lupus affecting left eyelid and extremities with subcutaneous facial edema previously controlled on hydroxychloroquine. Recent lesion left upper eyelid resolved with topical steroid. Code(s): M32.9 - Systemic lupus erythematosus, unspecified Category: Medical Plan: Labs to assess systemic lupus disease activity and prior to starting hydroxychloroquine ordered. Patient requires labs to be done at [employer] per her insurance. Requisition given to patient Return to clinic in 3 months [facility]ing [facility] Requesting last eye exam for hydroxychloroquine surveillance from 2023. She has an upcoming appointment for hydroxychloroquine surveillance She will discuss her symptoms of urinary frequency with PCP ? Overactive bladder- consider urogynecology referral. 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 Antibodies Today M32.9 - Systemic lupus erythematosus, unspecified UA w Microscopic Today M32.9 - Systemic lupus erythematosus, unspecified Alanine Aminotransferase Today Z79.60 - rodent exterminator (current) use of unspecified immunomodulators and immunosuppressants Complete Blood Count Auto Diff Today Z79.60 - rodent exterminator (current) use of unspecified immunomodulators and immunosuppressants Creatinine Today Z79.60 - rodent exterminator (current) use of unspecified immunomodulators and immunosuppressants Aspartate Amino Transferase Today Z79.60 - assisted (current) use of unspecified immunomodulators and immunosuppressants Hepatitis B,C Profile Today M32.9 - Systemic lupus erythematosus, unspecified Coding Level of Care Code Est Pt Level 4 (73130) Complex EM visit Add On G2211 Diagnoses Systemic lupus erythematosus M32.9
[2024-06-28 08:13] VITALS: BP 82/50; PULSE 79; O2SAT 98; BMI 37.8
== END 2024-06-28 08:40 | disposition home or self-care (01) ==
PROVIDERS: PCP Registered Nurse; Visit Provider Internal Medicine Rheumatology
DX: M32.9 Systemic lupus erythematosus, unspecified (principal)
CPT/HCPCS: 99214; G2211

== ENCOUNTER 2025-03-16 13:14 | Outpatient (AMB) | payer OTHER, SELFPAY ==
--- NOTE | 2025-03-16 13:17 | MHC.OFFVIS ---
Vital Signs 03/16/25 13:18 Height 5 ft 1 in Weight 179 lb 14.355 oz BMI 34.0 BP 116/80 Blood Pressure Location Rt brachial Position Sitting Pulse 98 Pulse Oximetry (%) 97 Oxygen Delivery Method Room Air Intake Visit Reasons: follow up Intake Note: Patient presents today for a lupus follow up. Accompanied by: Self / Same As Patient Allergies Sulfa (Sulfonamide Antibiotics) Allergy (Unknown, Verified 03/16/25 13:23) anaphylaxis HPI HPI follow up: Details: She gets bumbs on right arm. She has a habit of putting her right arm near the window when she is driving. The right arm is exposed to sun daily compared to the left. She has not had any facial swelling since being on hydroxychloroquine. No fevers, dypsnea, pleurisy, oral ulcers, dry mouth, urinary symptoms, +Dry eyes Physical Exam Vital Signs: Last Vital Signs Pulse 98 03/16/25 13:18 BP 116/80 03/16/25 13:18 Pulse Ox 97 03/16/25 13:18 Oxygen Delivery Method Room Air 03/16/25 13:18 BMI result Body Mass Index 34.0 Const Other: General: Comfortable CVS: RRR Respiratory: clear to auscultation bilaterally. Good respiratory effort Skin: She has a few erythematous pimples on her right forearm MSK: No tenderness of any joints. No synovitis. Good range of motion upper extremities and lower extremities. Assessment & Plan Assessment & Plan (1) Systemic lupus erythematosus: Comment: In remission on hydroxychloroquine. Cutaneous disease without systemic involvement. Rheumatology history: Cutaneous lupus affecting left eyelid and extremities with subcutaneous facial edema controlled on hydroxychloroquine. She uses topical steroid PRN facial lesions. Code(s): M32.9 - Systemic lupus erythematosus, unspecified Category: Medical Plan: Labs to assess systemic lupus disease activity and drug monitoring on high-risk medication ordered. Patient requires labs to be done at [facility] per her insurance. Requisition given to patient Continue HCQ 400mg daily. Last eye exam OCT and visual field OK May 2024. Return to clinic in 6 months Orders: Orders UA CC w/rflx Micro + Cult 03/16/25 M32.9 - Systemic lupus erythematosus, unspecified Medications: Changed From hydroxychloroquine 200 mg (2 x 100 mg) PO BID 60 tabs 5RF To hydroxychloroquine 200 mg (2 x 100 mg) PO BID 360 tabs 1RF 90 days Coding Level of Care Code Est Pt Level 4 (96452) Complex EM visit Add On G2211 Diagnoses Systemic lupus erythematosus M32.9
[2025-03-16 13:18] VITALS: BP 116/80; PULSE 98; O2SAT 97; BMI 34.0
--- OUTSIDE RECORDS SUMMARY | 2025-03-16 16:05 | XMS_ITS | Data Portability ---
Author Organization [facility], [facility] Address [address] [place] [address] Care Team Providers Care Deputy County Attorney Name Role Phone PEPE ANDERSON Primary Care Provider Assessment No assessment recorded. Plan of Treatment Reminders Order Date Submit Date Provider Last Modified By Organization Details Last Modified Time Details Appointments None recorded. Lab rapid SARS CoV 2 Ag, QL IA, respiratory specimen 2022 023 [email or web address] [facility], [address] [place], [address], 3 20:10:43 urinalysis, dipstick 2022 023 [facility], [address] [place], [address], 3 21:27:27 test, urine 2022 [email or web address] [place] [address] [address], [address] [place], [address], 3 21:27:27 culture, urine 2022 023 ENID [facility], [address] [place] [address], [place], [address], 3 22:06:01 Referral None recorded. Procedures None recorded. Surgeries None recorded. Imaging None recorded. Medication Orders amoxicillin 875 mg tablet 2023 024 [facility], [address] [facility], [place], [address], 4 18:36:56 cefuroxime axetil 500 mg tablet 2022 023 lbricault 2 [facility], [address] [place], [address], 4 17:55:34 benzonatate 100 mg capsule 2022 023 lbricault 2 [facility], [address] [place], [address], 4 17:55:19 loratadine 10 mg tablet 2022 023 [email or web address] [facility], [address] [place], [address], 3 20:10:43 ondansetron HCl 4 mg tablet 2022 023 lbricault 2 [facility], [address] [place], [address], 4 17:57:03 Patient TargetsNo targets recorded. Patient Instructions Encounter Date Encounter Id Patient Instructions Last Modified By Organization Details Last Modified Time 08/03/2022 [id number] gastroenteritis: care instructions [email or web address] Not available 08/03/2022 21:27:27 Please don't hesitate [...] Blood in Urine. Thank you for using [facility], please feel free to contact us if you have any questions or concerns. [email or web address] Not available 08/03/2022 20:11:51 10/23/2023 [id number] lymphadenitis: c are instructions [id number] Not available 10/23/2023 18:38:17 You can take ove r the counter tylenol or ibuprofen per package instructions for the pain. See printed instructions. Follow-up with your doctor if no improvement in 3 days. Seek Emergency Medical evaluation for any worsening symptoms. [id number] Not available 10/23/2023 18:37:32 Reason for Referral None Reported. Results Created Date Observation Date Name Description Value Unit Range Abnormal Flag Note LastModifiedBy Organization Detail LastModifiedTime 08/04/19 23 08/08/2022 URINE CULTU RE, RADHA NE urine culture, routine FINAL REPORT abnormal Not Available [facility] ([facility]) [address] [place], [address], 08/08/2022 14:06:33 08/04/19 23 08/08/2022 URINE CULTU [...] ng units per mL Not Available [facility] ([facility]) [address] [facility], [place], [address], 08/08/2022 14:06:33 08/04/1908/08/2022 URINE CULTU RE, ROUTI NE antimicrobia l [...] R Vanco mycin S Not Available [facility] ([facility]) [address] [facility], [place], [address], 08/08/2022 14:06:33 08/04/1908/03/2022 urina lysis , dipst ick Unknown Analyte Normal = light yellow Not Available [facility] [address] [place], [address], 08/03/2022 20:02:01 08/04/19 23 08/03/2022 urina lysis , dipst ick Unknown Analyte Red Not Available [address] [place] [address] [address] [place], [address], 08/03/2022 20:02:01 08/04/19 23 08/03/2022 urina lysis , dipst ick Unknown Analyte Normal = clear Not Available [address] [address] [place], [address], 08/03/2022 20:02:01 08/04/19 23 08/03/2022 urina lysis , dipst ick Unknown Analyte Slight ly Cloudy Not Available [address] [address] [address] [place], [address], 08/03/2022 20:02:01 08/04/19 23 08/03/2022 urina lysis , dipst ick Unknown Analyte Normal = negati ve Not Available [address] [place], [address], 08/03/2022 20:02:01 08/04/1908/03/2022 urina lysis , dipst ick Unknown Analyte Negati ve Not Available [facility] [address] [place], [address], 08/03/2022 20:02:01 08/04/19 23 08/03/2022 urina lysis , dipst ick Unknown Analyte Normal = Negati ve Not Available [facility] [address] [place], [address], 08/03/2022 20:02:01 08/04/19 23 08/03/2022 urina lysis , dipst ick Unknown Analyte Large Not Available [address] [place] [address] [address] [place], [address], 08/03/2022 20:02:01 08/04/19 23 08/03/2022 urina lysis , dipst ick Unknown Analyte Normal = Negati ve Not Available [facility] [address] [place], [address], 08/03/2022 20:02:01 08/04/1908/03/2022 urina lysis , dipst ick Unknown Analyte Trace Not Available [facility] [address] [place], [address], 08/03/2022 20:02:01 08/04/19 23 08/03/2022 urina lysis , dipst ick Unknown Analyte Normal = 1.010, 1.015, 1.020 Not Available [facility] [address] [place], [address], 08/03/2022 20:02:01 08/04/19 08/03/2022 urina lysis , dipst ick Unknown Analyte 1.020 Not Available [facility] [address] [place], [address], 08/03/2022 20:02:01 08/04/1908/03/2022 urina lysis , dipst ick Unknown Analyte Normal = Negati ve Not Available [facility] [address] [place], [address], 08/03/2022 20:02:01 08/04/1908/03/2022 urina lysis , dipst ick Unknown Analyte Large Not Available [facility] [address] [place], [address], 08/03/2022 20:02:01 08/04/1908/03/2022 urina lysis , dipst ick Unknown Analyte Normal = 6.5, 7.0, 7.5, 8.0 Not Available [facility] [address] [place], [address], 08/03/2022 20:02:01 08/04/19 23 08/03/2022 urina lysis , dipst ick Unknown Analyte 6.0 Not Available [address] [place] [address] [address] [place], [address], 08/03/2022 20:02:01 08/04/19 23 08/03/2022 urina lysis , dipst ick Unknown Analyte Normal = Negati ve Not Available [address] [place], [address], 08/03/2022 20:02:01 08/04/19 23 08/03/2022 urina lysis , dipst ick Unknown Analyte 300 mg/dL Not Available [facility] [address] [place], [address], 08/03/2022 20:02:01 08/04/19 23 08/03/2022 urina lysis , dipst ick Unknown Analyte Normal = 0.2, 1.0 Not Available [facility] [address] [place], [address], 08/03/2022 20:02:01 08/04/19 23 08/03/2022 urina lysis , dipst ick Unknown Analyte 2.0 E.U./d L Not Available [facility] [address] [place], [address], 08/03/2022 20:02:01 08/04/19 23 08/03/2022 urina lysis , dipst ick Unknown Analyte Normal = Negati ve Not Available [facility] [address] [place], [address], 08/03/2022 20:02:01 08/04/19 23 08/03/2022 urina lysis , dipst ick Unknown Analyte Positi ve Not Available [facility] [address] [place], [address], 08/03/2022 20:02:01 08/04/19 23 08/03/2022 urina lysis , dipst ick Unknown Analyte Normal = Negati ve Not Available [address] [address] [place], [address], 08/03/2022 20:02:01 08/04/19 23 08/03/2022 urina lysis , dipst ick Unknown Analyte Large Not Available [facility] [address] [place], [address], 08/03/2022 20:02:01 08/04/19 23 08/03/2022 pregn percy test, urine Unknown Analyte Normal = Negati ve Not Available [address] [place], [address], 08/03/2022 20:03:36 08/04/19 23 08/03/2022 pregn percy test, urine Unknown Analyte negati ve Not Available [address] [address] [address] [place], [address], 08/03/2022 20:03:36 08/04/19 23 08/03/2022 rapid SARS CoV 2 Ag, QL IA, respi rator y speci men Unknown Analyte Normal =Negat dax Not Available [address] [place], [address], 08/03/2022 19:25:57 08/04/19 23 08/03/2022 rapid SARS CoV 2 Ag, QL IA, respi rator y speci men Unknown Analyte negati ve Not Available [facility] [address] [place], [address], 08/03/2022 19:25:57 Result Notes None recorded. Problems Name Problem SNOMED Code Status Onset Date Resolution Date Notes Provider Name and Address Organization Details Recorded Time Lupus erythematosus 107957453 Active 2022 AMY DRINKWINE null, [place] - [facility] 3 19:23:14 Anxiety 73117315 Active 2023 Amy Bricault null, [place] - [facility] 4 17:58:32 Problem Notes None recorded. Medical Equipment None Reported. Allergies Allergen ID Allergen Name Allergen Category Reaction Reaction Severity Criticality Documentation Date Start Date Code Code System Note Provider Name and Address Organization Details Recorded Time 857489 Bactrim medicatio n hives Not available Not available 08/03/2022 74020 9 RxNorm AMY DRINKWINE null, [place] - [facility] 3 19:20:11 496513 Ritalin medicatio n rash Not available Not available 08/03/2022 85603 7 RxNorm AMY DRINKWINE null, [place] - [...] Heart rate Respiratory rate Body temperature Systolic And Diastolic Provider Name and Address Organization Details Last Updated DateTime 3 154.94 cm 37 kg/m2 77383.1 g 99 % 99 % 6 110 /min 16 /min 97.9 [degF] 128/80 mm[Hg] AMY ONEIL [employer] 3 19:25:15 Date Recorded Body height Body mass index (BMI) Body weight Pain severity - 0-10 verbal numeric rating [Score] - Reported Body temperature Heart rate Oxygen saturation Oxygen saturation in Arterial blood by Pulse oximetry Systolic And Diastolic Provider Name and Address Organization Details Last Updated DateTime 4 154.94 cm 38.7 kg/m2 60017.4 4 g 6 97.1 [degF] 79 /min 100 % 100 % 107/70 mm[Hg] Amy Shields [employer] [facility] 4 18:01:50 Social History Question Answer Notes LastModified by FRAMED Details LastModified Time Tobacco Smoking Status Current Some Day Smoker last smoked a week ago [facility] 08/03/2022 19:24:40 Have You Had A Flu Shot This Season? Yes Information not available 10/23/2023 If No, Would You Like A Flu Shot Today? No Information not available 10/23/2023 Sex: Unknown Functional Status Question Answer Note LastModified by Organizat ion Details LastModified Time Do you use any illicit or recreational drugs? No Information not available 08/03/2022 Do you or have you ever used any other forms of tobacco or nicotine? No Information not available 08/03/2022 Mental Status None recorded. Family History Relationship [...] Diagnosis SNOMED-CT Code Diagnosis ICD10 Code Diagnosis IMO Codes Diagnosis Note [id number] [address] [place] [address] [address] [address] 11/18/2019 18:49:43 11/18/2019 19:29:[id number] [place] [address] [address] [address] 06/28/2016 12:56:13 06/28/2016 14:09:[id number] [place] [address] [address] [address] 05/17/2015 17:36:07 05/17/2015 18:42:[id number] [place] [address] [address] [address] [place] [address] 05/22/2017 18:28:58 05/22/2017 18:58:[id number] [place] [address] [address] [address] 2018 08:12:09 2018 09:35:[id number] [place] [address] [address] [place] [address] 7 08/30/2017 13:11:27 08/30/2017 13:45:12 [id number] [facility] [address] [place] [address] 7 02/14/2018 10:32:46 02/14/2018 10:52:42 [id number] [facility] [address] [place] [address] 11/09/2019 15:25:06 11/09/2019 16:49:[id number] [place] [address] [address] [place] [address] 7 10/18/2020 17:51:32 10/18/2020 18:36:[id number] [place] [address] [address] [place] [address] 7 02/15/2020 12:06:03 02/15/2020 14:32:[id number] [place] [address] [address] [place] [address] 7 05/07/2015 11:49:06 05/07/2015 12:33:[id number] [place] [address] [facility] [address] [place] [address] 7 05/05/2017 09:19:59 05/05/2017 10:50:[id number] [place] [address] [address] [place] [address] 7 02/21/2015 17:56:00 02/21/2015 18:30:15 [id number] BERNADETTE NAIR [address] [address] [place] [address] 08/03/2022 18:55:47 08/03/2022 20:23:29 Exposure to SARS-CoV-2 208777826 Z20.822 Gastroenteritis 09554140 K52.9 If vomiting continues for another 24 hours I would suggest going to the Emergency Room. You should go to the Emergency more urgently if you develop:1. Fever2. Abdominal pain Cough 81922103 R05.9 Upper resp iratory infection 23680920 J06.9 Pyuria 5798303 R82.81 Your urine is very suggestive of a UTI. You have Leukocytes , and Nitrates. I will send it to culture to check. [id number] [place] [address] [address] 10/23/2023 16:44:56 10/23/2023 18:43:27 Cervical lymphadenitis 5580696 I88.9 HeatApply moist heat to affected area 3 times a day for 20 minutes at a time. Do not sleep with a heating pad as it may cause skin galvan. Health Concerns Section Related Observation LastModified by Organization Detai ls LastModified Time None Recorded Concern Status LastModified by Organization Details LastModified Time None Recorded Advance Directives Directive None Recorded Payers Insurance Date Sequence Insurance Name Policy Number Policy Rubin Covered Member ID Rubin Member ID Guarantor Name 08/03/2022 1 [employer] [id number] Sarah Juarez [id number] Sarah Juarez Notes Date Note Type Note Provider Name and Address Organization Details Recorded Time 08/04/19 23 text/htm l Nausea / Vomiting UCReported by PatientHPI:For associated symptoms, patient reportsfeveranddiarrheabut reportsno abdominal pain,no chills,no heartburn,no dark tarry stools, andno fatigue. For source of patient information, patient reportsinformation obtained from patient. For severity, patient reportsmild. For duration, patient reports3 days. For onset/timing, patient reportsacute.The patient reports that for the last 3 days has had vomiting. No abdominal pain. She has had a cold for over 1 week. The patient states mucous and coughing. Thought she heard wheezing today. The patient still has her gallbladder and appendix. Denies fever. Unable to keep anything down. BERNADETTE NAIR [address] [place], [address], [place] - [facility] 08/06/2022 21:21:51 10/23/19 24 text/htm l 33 yo female c/o increased pain on the right side of her neck radiating to her right ear for the last 3 days. Hx of recurrent ear infections. Tender under the right neck. Afebrile. JOELLEN ROCA MD [address] [place] [address] [place], [address], [place] - [facility] 10/24/2023 18:44:18 OBGyn Episode No OBEpisode recorded.
--- OUTSIDE RECORDS SUMMARY | 2025-03-16 16:05 | XMS_ITS ---
Author Name [facility] Organization Unknown Care Team Organization Name Specialty Phone Email Start Date End Da te [facility] GUSTAVO Primary Care 07/16/2022 12/28/2023 [facility] Christine Del Rio Primary Care 03/18/202212/27
== END 2025-03-16 13:57 | disposition home or self-care (01) ==
LOC: HO.RHES 13:14
PROVIDERS: PCP Registered Nurse; Visit Provider Internal Medicine Rheumatology
DX: M32.9 Systemic lupus erythematosus, unspecified (principal)
CPT/HCPCS: 99214; G2211